=== PATIENT | female | born 1970 | race Caucasian/White ===

== ENCOUNTER 2020-07-03 09:02 | Outpatient (CLI) | payer OTHER | END 2020-07-03 09:08 | disposition home or self-care (01) | LOC: MAMO-SONO 09:02 | PROVIDERS: ATTEND Obstetrics & Gynecology | DX: Z12.31 Encounter for screening mammogram for malignant neoplasm of breast (principal); N60.11 Diffuse cystic mastopathy of right breast; N60.12 Diffuse cystic mastopathy of left breast ==

== ENCOUNTER → 2021-07-18 | Outpatient (CLI) | payer OTHER | END | disposition home or self-care (01) | LOC: MAMO-SONO 10:04 | PROVIDERS: ATTEND Obstetrics & Gynecology Obstetrics | DX: N64.4 Mastodynia (principal); N60.29 Fibroadenosis of unspecified breast ==

== ENCOUNTER 2022-09-11 07:41 | Outpatient (CLI) | payer OTHER | END 2022-09-11 07:47 | disposition home or self-care (01) | LOC: LAB 07:41 | PROVIDERS: ATTEND Obstetrics & Gynecology | DX: N30.00 Acute cystitis without hematuria (principal); E55.9 Vitamin D deficiency, unspecified; E78.5 Hyperlipidemia, unspecified; D51.3 Other dietary vitamin B12 deficiency anemia; N83.209 Unspecified ovarian cyst, unspecified side; N95.1 Menopausal and female climacteric states; Z12.11 Encounter for screening for malignant neoplasm of colon ==

== ENCOUNTER 2022-09-11 08:56 | Outpatient (CLI) | payer OTHER | END 2022-09-11 09:30 | disposition home or self-care (01) | LOC: MAMO-SONO 08:56 | PROVIDERS: ATTEND Obstetrics & Gynecology | DX: N64.4 Mastodynia (principal); N60.19 Diffuse cystic mastopathy of unspecified breast; D25.1 Intramural leiomyoma of uterus; N95.0 Postmenopausal bleeding ==

== ENCOUNTER 2022-09-11 12:05 | Outpatient (CLI) | payer OTHER | END 2022-09-11 12:06 | disposition home or self-care (01) | LOC: NUCLEAR 12:05 | PROVIDERS: ATTEND Obstetrics & Gynecology | DX: M81.0 Age-related osteoporosis without current pathological fracture (principal) ==

== ENCOUNTER 2023-10-06 13:39 | Outpatient (CLI) | payer OTHER | END 2023-10-06 13:51 | disposition home or self-care (01) | LOC: MAMO-SONO 13:39 | PROVIDERS: ATTEND Obstetrics & Gynecology | DX: N64.4 Mastodynia (principal); N60.19 Diffuse cystic mastopathy of unspecified breast ==

== ENCOUNTER 2024-07-13 14:46 | Outpatient (CLI) | payer OTHER | END 2024-07-13 14:51 | disposition home or self-care (01) | LOC: SONOGRAMA 14:46 | PROVIDERS: ATTEND Obstetrics & Gynecology | DX: N63.13 Unspecified lump in the right breast, lower outer quadrant (principal) ==